=== PATIENT | female | born 1930 | race Caucasian/White ===

== ENCOUNTER 2018-01-13 13:21 | Inpatient (IN) ==
--- NOTE | 2018-01-13 13:53 | Emergency Department Note ---
Weakness HPI - General Chief complaint: Weakness Stated complaint: SOB Time Seen by Provider: 01/13/18 13:36 Source: EMS Mode of arrival: EMS Limitations: no limitations - History of Present Illness HPI Narrative: Patient brought in by survey rodman because of increased weakness. Patient herself has dementia states that she has gotten along with her however her daughter arrived and states that patient had a fall yesterday with no major injuries there was no head injury involved. Was trying to get out of bed and had fallen. Her main complaint today is that she is having increased weakness is unable to get out of the bed., According to her daughter.Temperature is 99.1 the pulse is 81 respirations are 18 blood pressure 160/63 pulse ox is reading at 90% initially but when rechecked again without any oxygen is running at 99-100% rates the pain is a 0/10 - Related Data Previous Rx's Medication Instructions Recorded Azithromycin [Zithromax] 250 mg PO UD #6 tablet 08/01/15 Cefuroxime [Ceftin] 500 mg PO Q12 #20 tablet 08/01/15 Allergies Allergy/AdvReac Type Severity Reaction Status Date / Time morphine [MORPHINE] AdvReac Mild Nausea/Vomi Verified 01/13/18 13:38 ting Review of Systems All systems ED: reviewed and negative except as stated. Constitutional: Denies: fever, chills Neurological: Reports: weakness Psychiatric: Denies: anxiety, depression Endocrine: Denies: fatigue Hematological/Lymphatic: Denies: easy bleeding Past Medical History - Past Medical History [facility] Narrative: All Active Problems (This Medical Record has been edited. Action required.) Pneumonia (Acute) Medical history: Reports: dementia - Social History smoking status: Former smoker Alcohol use: Reports: None Drug use: Reports: none Physical Exam Limitations: no limitations General appearance: alert Head: atraumatic, normocephalic Eye: Present: normal appearance, PERRL ENT: normal exam, normal oropharynx Neck: Present: normal inspection, full ROM, trachea midline Chest: Present: normal inspection, symmetric chest wall rise Respiratory: Present: normal lung sounds bilaterally. Absent: respiratory distress Cardiovascular: Present: regular rate, normal rhythm. Absent: bradycardia, tachycardia Abdominal: Present: soft, rigidity, normal bowel sounds. Absent: distention, tenderness, guarding, rebound Extremities: Present: normal inspection, full ROM. Absent: tenderness Hip/Pelvis: Present: normal inspection Upper leg: Present: normal inspection Knee: Present: normal inspection, tenderness. Absent: swelling, abrasion, laceration, ecchymosis Back: Present: normal inspection, full ROM. Absent: tenderness Neurological: Present: alert, oriented X3, CN II-XII intact Psychiatric: Present: normal affect, normal mood. Absent: depressed, agitated Skin: Present: warm, dry, intact, normal color Course Vital Signs Temperature 99.1 F H 01/13/18 13:22 Pulse Rate 81 01/13/18 13:22 Respiratory Rate 18 01/13/18 13:22 Blood Pressure 160/63 01/13/18 13:22 Pulse Oximetry (%) 90 01/13/18 13:22 Temperature 99.1 F H 01/13/18 13:22 Pulse Rate 91 H 01/13/18 17:31 Respiratory Rate 25 H 01/13/18 16:16 Blood Pressure 144/115 01/13/18 17:31 Pulse Oximetry (%) 100 01/13/18 17:31 Weakness - MDM Narrative Medical decision making narrative: WBC is elevated at 13,400 hemoglobin 12.9 hematocrit 39.274 segs 1 band and 17 lymphocytes lactic acid is 1.3 can panel normal with a glucose of 87 his sodium was 140 potassium 4.3 the BUN is 17 and creatinine 0.8 urine test shows positive leukocytes 84 WBCs and 0 RBCs culture and sensitivity is pending. Cultures have been drawn patient given IV fluids started on Levaquin. The nursing staff states that patient was unable to get off the bathroom toilet when taken to the bathroom in the ED. Patient was brought in for increased weakness unable to get out of bed - Lab Data Result diagrams: 01/13/18 14:00 01/13/18 14:00 Lab Results 01/13/18 01/13/18 01/13/18 Range/Units 14:00 14:00 14:02 WBC 13.4 H (4.5-11.0) K/mcL RBC 4.08 (4.00-5.20) M/mcL Hgb 12.9 (12.0-15.0) g/dL Hct 39.2 (36.0-48.0) % MCV 96.0 (80.0-100.0) fL MCH 31.6 (26.0-34.0) pg MCHC 32.9 (31.0-36.0) g/dL RDW 12.9 (11.5-14.5) % Plt Count 252 (140-440) K/mcL MPV 9.1 (7.4-10.4) fL Total Counted 150 Seg Neutrophils % 74 (38-78) % Band Neutrophils % 1 (0-10) % Lymphocytes % 17 (15-49) % Monocytes % (Manual) 6 (1-12) % Eosinophils % (Manual) 2 (0-7) % Basophils % (Manual) 1 (0-2) % Platelet Estimate Normal (NORMAL) RBC Morphology Normal (NORMAL) VBG Lactic Acid 1.3 (0.5-2.0) mmol/L Sodium 140 (133-145) mmol/L Potassium 4.3 (3.3-5.1) mmol/L Chloride 97 (96-108) mmol/L Carbon Dioxide 29 (22-30) mmol/L Anion Gap 14.0 (8-16) BUN 17 (8-23) mg/dl Creatinine 0.8 (0.6-1.1) mg/dl GFR Calculation 65 Glucose 87 (70-105) mg/dL Calcium 9.2 (8.6-10.4) mg/dl Total Bilirubin 0.8 (0.0-1.0) mg/dL AST 25 (0-37) U/l ALT 8 (0-40) U/l Alkaline Phosphatase 72 (39-117) U/L Total Protein 7.0 (5.9-8.4) gm/dL Albumin 3.6 (3.2-5.2) gm/dL Globulin 3.4 (2.2-3.7) gm/dL Albumin/Globulin Ratio 1.1 (1.0-2.3) Urine Color Urine Appearance Urine pH (5.0-9.0) Ur Specific [place] (1.000-1.035) Urine Protein (NEG) mg/dL Urine Glucose (UA) (NEG) mg/dL Urine Ketones (NEG) mg/dL Urine Occult Blood (<0.03) mg/dL Urine Nitrate (NEG) Urine Bilirubin (NEG) mg/dL Urine Ictotest (NEG) Urine Urobilinogen (NEG) mg/dL Ur Leukocyte Esterase (NEG) /uL Urine RBC (0-1) /hpf Urine WBC (0-4) /hpf Ur Squamous Epith Cells (0-4) /hpf Urine Bacteria (0) /hpf Urine Mucus (0) /hpf Ur Culture Indicated? 01/13/18 Range/Units 16:02 WBC (4.5-11.0) K/mcL RBC (4.00-5.20) M/mcL Hgb (12.0-15.0) g/dL Hct (36.0-48.0) % MCV (80.0-100.0) fL MCH (26.0-34.0) pg MCHC (31.0-36.0) g/dL RDW (11.5-14.5) % Plt Count (140-440) K/mcL MPV (7.4-10.4) fL Total Counted Seg Neutrophils % (38-78) % Band Neutrophils % (0-10) % Lymphocytes % (15-49) % Monocytes % (Manual) (1-12) % Eosinophils % (Manual) (0-7) % Basophils % (Manual) (0-2) % Platelet Estimate (NORMAL) RBC Morphology (NORMAL) VBG Lactic Acid (0.5-2.0) mmol/L Sodium (133-145) mmol/L Potassium (3.3-5.1) mmol/L Chloride (96-108) mmol/L Carbon Dioxide (22-30) mmol/L Anion Gap (8-16) BUN (8-23) mg/dl Creatinine (0.6-1.1) mg/dl GFR Calculation Glucose (70-105) mg/dL Calcium (8.6-10.4) mg/dl Total Bilirubin (0.0-1.0) mg/dL AST (0-37) U/l ALT (0-40) U/l Alkaline Phosphatase (39-117) U/L Total Protein (5.9-8.4) gm/dL Albumin (3.2-5.2) gm/dL Globulin (2.2-3.7) gm/dL Albumin/Globulin Ratio (1.0-2.3) Urine Color Yellow Urine Appearance Hazy Urine pH 5.0 (5.0-9.0) Ur Specific [place] 1.030 (1.000-1.035) Urine Protein 100 A (NEG) mg/dL Urine Glucose (UA) Negative (NEG) mg/dL Urine Ketones 20 A (NEG) mg/dL Urine Occult Blood Neg (<0.03) mg/dL Urine Nitrate Neg (NEG) Urine Bilirubin Neg (NEG) mg/dL Urine Ictotest Neg (NEG) Urine Urobilinogen 4.0 A (NEG) mg/dL Ur Leukocyte Esterase 75 A (NEG) /uL Urine RBC 0 (0-1) /hpf Urine WBC 84 H (0-4) /hpf Ur Squamous Epith Cells 3 (0-4) /hpf Urine Bacteria 0 (0) /hpf Urine Mucus Many A (0) /hpf Ur Culture Indicated? Yes Disposition Pt seen by [employer]/PA only: No Clinical Impression: Complicated UTI (urinary tract infection) Disposition: Xfer As Outpt/Obs ([facility]) Condition: Fair
--- NOTE | 2018-01-13 14:33 | Cat Scan Report ---
CLINICAL INFORMATION: Fall. Head injury. COMPARISON: None. TECHNIQUE: Axial noncontrast-enhanced images through the brain. FINDINGS: No acute intracranial hemorrhage. No subdural hematoma. No subarachnoid hemorrhage. No intra-axial hemorrhage. No focal attenuation abnormality or localized mass effect. No midline shift. There is cerebral atrophy. There is ventricular enlargement with prominent superficial subarachnoid spaces. Brainstem and cerebellum are negative. No calvarial fracture. There is mucosal thickening within ethmoid sinuses bilaterally. There is extensive mucosal thickening within sphenoid air cells and mild frontal sinus disease. Findings are consistent with inflammatory disease. IMPRESSION: 1. Cerebral atrophy. 2. No acute posttraumatic abnormality. No intracranial hemorrhage. No calvarial fracture. 3. Inflammatory disease of the paranasal sinuses The exam was performed using radiation dose optimization techniques including, but not limited to, automated exposure control, adjustment of the mA and/or kV according to patient size and use of iterative reconstruction technique. Interpreted and Authenticated by: Maury Goins 01/13/18
[2018-01-13 14:35] LABS: Mean Corpuscular HGB Conc 32.9 g/dL (31.0-36.0); Mean Corpuscular Hemoglobin 31.6 pg (26.0-34.0); Platelet Count 252 K/mcL (140-440); RBC 4.08 M/mcL (4.00-5.20); Red Cell Distribution Width 12.9 % (11.5-14.5)
--- NOTE | 2018-01-13 14:37 | XRay Report ---
INDICATION: COPD. Dyspnea. Weakness. TECHNIQUE: AP chest x-ray, portable upright COMPARISON: Previous examinations dated 08/01/2015, 04/22/2014, 02/17/2014 FINDINGS: Bilateral hyperexpansion. Findings are consistent with COPD. No acute or focal pulmonary parenchymal infiltrate. No evidence for congestive heart failure. Heart size is at the upper limits of normal. No pulmonary edema or pulmonary congestion. No pleural fluid. No acute abnormality or significant interval change IMPRESSION: 1. Changes consistent with COPD 2. No acute abnormality. Interpreted and Authenticated by: Maury Goins 01/13/18
[2018-01-13 14:53] LABS: ALT/SGPT 8 U/l (0-40); Albumin 3.6 gm/dL (3.2-5.2); Albumin/Globulin Ratio 1.1 (1.0-2.3); Alkaline Phosphatase 72 U/L (39-117); Blood Urea Nitrogen 17 mg/dl (8-23)
--- NOTE | 2018-01-13 14:54 | XRay Report ---
CLINICAL INFORMATION: Knee injury and knee pain TECHNIQUE: AP, oblique, crosstable lateral lateral left knee COMPARISON: None. FINDINGS: Findings consistent with osteopenia or osteoporosis. No acute left knee fracture. Distal femur and proximal tibia are negative. Degenerative joint disease in the patellofemoral joint with joint space narrowing. Small suprapatellar joint effusion. This is a nonspecific finding. No lipohemarthrosis. IMPRESSION: 1. No left knee fracture 2. Small joint effusion 3. Degenerative disease in the patellofemoral joint 4. Findings consistent with osteopenia or osteoporosis Interpreted and Authenticated by: Maury Goins 01/13/18
--- NOTE | 2018-01-13 14:55 | XRay Report ---
CLINICAL INFORMATION: Fall. Knee pain. TECHNIQUE: AP, oblique, crosstable lateral right knee COMPARISON: None. FINDINGS: Degenerative joint disease with narrowing of the patellofemoral joint. There is a small suprapatellar joint effusion. No lipohemarthrosis. No acute fracture. Distal femur and proximal tibia are negative. There is demineralization consistent with osteopenia and osteoporosis. There is moderate chondrocalcinosis. IMPRESSION: 1. Degenerative joint disease with narrowing of the patellofemoral joint 2. Small joint effusion 3. Demineralization 4. No right knee fracture Interpreted and Authenticated by: Maury Goins 01/13/18
[2018-01-13 15:31] LABS: Band Neutrophils % 1 % (0-10); Basophils % (Manual) 1 % (0-2); Eosinophils % (Manual) 2 % (0-7); Lymphocytes % 17 % (15-49); Monocytes % (Manual) 6 % (1-12); Platelet Estimate NORMAL (NORMAL); RBC Morphology NORMAL (NORMAL); Segmented Neutrophils % 74 % (38-78)
[2018-01-13] MEDS ORDERED: 0.9 % SODIUM CHLORIDE 1,000 ML IV ONE (16:00)
[2018-01-13 16:30] LABS: Appearance,Urine HAZY; Bacteria,Urine 0 /hpf (0); Bilirubin,Urine NEG (NEG); Color,Urine YELLOW; Glucose,Urine (UA) NEGATIVE (NEG); Ictotest,Urine NEG (NEG); Leukocyte Esterase,Urine 75 /uL (NEG); Mucus,Urine MANY /hpf (0); Protein,Urine 100 mg/dL (NEG); Urine Blood NEG mg/dL (<0.03); Urine RBC 0 /hpf (0-1); Urine Squamous Epithelial Cell 3 /hpf (0-4); Urine WBC 84 /hpf (0-4)
[2018-01-13] MEDS ORDERED: LEVOFLOXACIN 500 MG/100 ML BAG IV ONE (16:44)
--- NOTE | 2018-01-13 17:45 | Internal Med History&Physical ---
Medical - H&P: [facility] Patient information: Note initiated : 01/13/18 at 5:42 pm Service Date, if different from initiated Date: [] Patient: Destiny Garcia a 87 y/o F admitted on for Shortness of breath. Chief Complaint: [] History of present illness: Ms. Garcia is a 87 year old F who lives with her daughter and has a history of dementia. Yesterday the patient fell in the craig landed on her knees had a lot of pain. The daughter's roommate was able to help patient in bed. The next morning patient had a lot of pain in her knees difficulty ambulating because of the pain and also generalized weakness. She was brought into the ER. Where she was evaluated and had imaging done of both knees as well as chest and head she has no acute fractures she does have degenerative joint disease in the knees. She has COPD changes along's but again no acute pathology on imaging. During workup she was have found to have a urinalysis that was consistent with a UTI. In questioning the patient per the daughter she has urine that is been malodorous lately most of the history is obtained from the staff and the daughter as patient is a poor historian. New the daughter with mom knew what medications they are on and what therefore they just know that she takes a couple medications a day. In the ER she is also found to have leukocytosis and given the UA result patient was started on Rocephin. Lactate was within normal limits. Review of Systems: Positive for generalized weakness knee pain from fall. Denies headache/fever/ chills/nausea/vomiting/chest or abdominal pain/cough/dyspnea/diarrhea. Remaining 10 point review of systems reviewed and negative Medical - H&P: PMH Medical history: Medical History (This Medical Record has been edited. Action required.) Thyroid suspect hypothyroidism but the patient family could not give me specifics or the medication she is on Dementia Likely COPD based on smoking history and imaging Surgical history: Next T&A and bilateral shoulders Family history: Both mother and father had heart disease Social history Patient quit smoking 10-15 years ago She drinks several alcoholic drinks, liquor, about 6 times a week; the patient and daughter state that she is gone days to week without drinking and has had no withdrawals She does not use a cane or walker to get around She lives with her daughter Medical - H&P: Meds Home Medications Medication Instructions Recorded Confirmed Type Azithromycin [Zithromax] 250 mg PO UD #6 tablet 08/01/15 Rx Cefuroxime [Ceftin] 500 mg PO Q12 #20 tablet 08/01/15 Rx Allergies Allergy/AdvReac Type Severity Reaction Status Date / Time morphine [MORPHINE] AdvReac Mild Nausea/Vomi Verified 01/13/18 13:38 ting Medical - H&P: Exam - Constitutional Vitals: Temp Pulse Resp BP Pulse Ox 99.1 F H 91 H 25 H 144/115 100 01/13/18 13:22 01/13/18 17:31 01/13/18 16:16 01/13/18 17:31 01/13/18 17:31 Exam: General: Alert, Awake, No acute Distress HEENT: EOMI, normocephalic atraumatic, pupils equal round react light, dry mucous membranes CV: RRR, No murmurs, normal s1/s2 Pulm: Prolonged expiratory phase, occasional expiratory wheeze, no rales or rhonchi Abd: soft, nontender, +BS x4 Ext: no clubbing/cyanosis/edema Neuro: Alert, no focal deficits but significant generalized weakness, moves all extremities Skin: warm/dry Medical - H&P: Reslt - Labs CBC & Chem 7: 01/13/18 14:00 01/13/18 14:00 Labs: Short CBC 01/13/18 Range/Units 14:00 WBC 13.4 H (4.5-11.0) K/mcL Hgb 12.9 (12.0-15.0) g/dL Hct 39.2 (36.0-48.0) % Plt Count 252 (140-440) K/mcL BMP 01/13/18 14:00 Sodium 140 Potassium 4.3 Chloride 97 Carbon Dioxide 29 BUN 17 Creatinine 0.8 Glucose 87 Calcium 9.2 Liver Function 01/13/18 Range/Units 14:00 Total Bilirubin 0.8 (0.0-1.0) mg/dL AST 25 (0-37) U/l ALT 8 (0-40) U/l Alkaline Phosphatase 72 (39-117) U/L Albumin 3.6 (3.2-5.2) gm/dL Urine 01/13/18 Range/Units 16:02 Urine Color Yellow Urine Appearance Hazy Urine pH 5.0 (5.0-9.0) Ur Specific [place] 1.030 (1.000-1.035) Urine Protein 100 A (NEG) mg/dL Urine Glucose (UA) Negative (NEG) mg/dL - Impressions Imaging were reviewed shows no acute pathology CT brain shows a treatable atrophy chest x-ray with COPD changes knees with also arthritis but again no acute pathology Medical - H&P: A/P - Narrative A/P Narrative: A: *UTI: *Sepsis: 2/2 above *Generalized weakness: 2/2 above *Dementia: *Thyroid disease, probably hypothyroid * P: -IV Rocephin -Blood cultures pending -IV fluid hydration -PT OT -Med clarification -Case management for any discharge needs - -ppx: Lovenox
[2018-01-13] MEDS ORDERED: cefTRIAXone 1 GM in DEXTROSE 5% IN WATER 50 ML IV SCH (18:53)
[2018-01-13] MEDS ORDERED: MAGNESIUM HYDROXIDE 30 ML ORAL.SUSP PO PRN (18:53)
[2018-01-13] MEDS ORDERED: ONDANSETRON 4 MG/2 ML VIAL IV PRN (18:53)
[2018-01-13] MEDS ORDERED: IPRATROPIUM/ALBUTEROL 3 ML AMPUL.NEB NEB PRN (18:53)
[2018-01-13] MEDS ORDERED: 0.9 % SODIUM CHLORIDE 1,000 ML IV SCH (18:53)
[2018-01-13] MEDS: cefTRIAXone 1 GM VIAL IV SCH (19:57)
[2018-01-13] MEDS: DOCUSATE SODIUM 100 MG CAPSULE PO SCH (20:56)
[2018-01-13] MEDS: 0.9 % SODIUM CHLORIDE 10 ML SYRINGE IV SCH (20:56)
[2018-01-14] MEDS: guaiFENesin/CODEINE 10 ML UDC PO PRN ×4 (03:00→22:22)
[2018-01-14] MEDS: BENZONATATE 100 MG CAPSULE PO PRN ×3 (03:00→20:37)
[2018-01-14] MEDS: 0.9 % SODIUM CHLORIDE 10 ML SYRINGE IV SCH ×4 (03:50→22:14)
--- NOTE | 2018-01-14 05:27 | XRay Report ---
CLINICAL INFORMATION: Hip pain TECHNIQUE: Limited AP view of the right hip COMPARISON: None. FINDINGS: A single AP view of the right hip. There is motion with some imaged angulation. No detectable fracture. Visualized portions of the right hemipelvis are negative. There is degenerative joint space narrowing. IMPRESSION: 1. Very limited evaluation as above 2. No detectable fracture Interpreted and Authenticated by: Maury Goins 01/14/18
--- NOTE | 2018-01-14 06:48 | Internal Med Progress Note ---
Medical - PN: Subj Patient information: Note initiated : 01/14/18 at 6:45 am Service Date, if different from initiated Date: [] Patient: Destiny Garcia 87 y/o F admitted on 01/13/18 for Shortness of breath. Chief Complaint: [] Interval history: Ms. Garcia is a 87 year old F who lives with her daughter and has a history of dementia. Yesterday the patient fell in the craig landed on her knees had a lot of pain. The daughter's roommate was able to help patient in bed. The next morning patient had a lot of pain in her knees difficulty ambulating because of the pain and also generalized weakness. She was brought into the ER. Where she was evaluated and had imaging done of both knees as well as chest and head she has no acute fractures she does have degenerative joint disease in the knees. She has COPD changes along's but again no acute pathology on imaging. During workup she was have found to have a urinalysis that was consistent with a UTI. In questioning the patient per the daughter she has urine that is been malodorous lately most of the history is obtained from the staff and the daughter as patient is a poor historian. New the daughter with mom knew what medications they are on and what therefore they just know that she takes a couple medications a day. In the ER she is also found to have leukocytosis and given the UA result patient was started on Rocephin. Lactate was within normal limits. 01/14 Has a cough and sinus drainage, otherwise no complaints. Poor sleep until late in the night and slept. Review of Systems: denies headache/fever/chills/nausea/vomiting/chest or abdominal pain/dyspnea/ diarrhea. Otherwise see above. - Constitutional Vitals: Vital Signs Temp Pulse Resp BP Pulse Ox 98.3 F 90 24 H 121/53 90 01/14/18 03:27 01/14/18 03:27 01/14/18 03:27 01/14/18 03:27 01/14/18 03:27 Period Temp Pulse Resp BP Sys/[place] Pulse Ox Last 24 Hr 97.9 F-99.1 F 74-98 15-28 114-180/53-115 85-100 Intake and Output 01/13/18 01/14/18 01/14/18 21:59 05:59 13:59 Intake Total 1100 / 1100 240 / 240 Balance 1100 / 1100 240 / 240 Weight 52.163 kg Intake & Output: Intake & Output 01/13/18 01/14/18 01/14/18 21:59 05:59 13:59 Intake Total 1100 / 1100 240 / 240 Balance 1100 / 1100 240 / 240 Weight 52.163 kg Intake: IV 1100 / 1100 Sodium Chloride 0.9% 1,000 ml @ 1000 / 1000 Wide Open IV BOLUS ONE Rx#: [id number] Oral 240 / 240 Exam: General: Alert, Awake, No acute Distress HEENT: EOMI, neck supple CV: RRR, No murmurs, normal s1/s2 Pulm: Prolonged expiratory phase, no rhonchi Abd: soft, nontender, +BS x4 Ext: no clubbing/cyanosis/edema Neuro: Alert, no focal deficits but significant generalized weakness, moves all extremities Skin: warm/dry Medical - PN: Obj Da - Labs CBC & Chem 7: 01/14/18 04:07 01/13/18 14:00 Labs: Abnormal Lab Results 01/13/18 01/13/18 16:02 14:00 WBC 13.4 H Urine Protein 100 A Urine Ketones 20 A Urine Urobilinogen 4.0 A Ur Leukocyte Esterase 75 A Urine WBC 84 H Urine Mucus Many A Meds: Medications Acetaminophen (Tylenol) 650 mg PO Q6HP PRN PRN Reason: PAIN/FEVER > 101 Albuterol/Ipratropium (Duoneb) 3 ml NEB Q4HRT PRN PRN Reason: breathing Last Admin: 01/14/18 02:37 Dose: 3 ml Benzonatate (Tessalon) 100 mg PO Q8HP PRN PRN Reason: Cough Last Admin: 01/14/18 03:00 Dose: 100 mg Ceftriaxone Sodium (Rocephin) 1 gm IV DAILY [facility] Last Admin: 01/13/18 19:57 Dose: 1 gm Docusate Sodium (Colace) 100 mg PO BID [facility] Last Admin: 01/13/18 20:56 Dose: 100 mg Enoxaparin Sodium (Lovenox) 40 mg SQ DAILY PERI Guaifenesin/Codeine Phosphate (Robitussin Ac) 5 ml PO Q4HP PRN PRN Reason: Cough Last Admin: 01/14/18 03:00 Dose: 5 ml Magnesium Hydroxide (Milk Of Magnesia) 30 ml PO DAILYP PRN PRN Reason: Constipation Ondansetron HCl (Zofran) 4 mg IV Q6HP PRN PRN Reason: Nausea And Vomiting Pneumococcal Polyvalent Vaccine (Pneumovax 23) 0.5 ml IM .ONCE ONE Stop: 01/15/18 10:01 Sodium Chloride (Saline Flush) 10 ml IV Q8 PERI Last Admin: 01/14/18 04:42 Dose: Not Given Medical - PN: A/P - Time Spent With Patient Total time spent is greater than 50% in coordination of care (as documented) at patient's floor/unit and/or counseling patient: - Narrative A/P Narrative: A: *UTI: *Sepsis: 2/2 above -CXR no acute *Generalized weakness: 2/2 above *Dementia: *Thyroid disease, probably hypothyroid * P: -IV Rocephin -BC/UC pending -IV fluid hydration -PT/OT -Med clarification -Case management for any discharge needs - -ppx: Lovenox Medical - PN: Qual - VTE Deep Vein Thrombosis/Pulmonary Embolism Present on Admission: No
[2018-01-14 07:09] LABS: Basophils # (Auto) 0.1 K/mcL (0.0-0.3); Basophils % (Auto) 0.4 % (0.0-2.0); Eosinophils # (Auto) 0.1 K/mcL (0.0-0.7); Eosinophils % (Auto) 0.7 % (0.0-7.0); Granulocytes % (Auto) 81.8 % (38.0-78.0); Lymphocytes % (Auto) 8.3 % (15.5-49.0); Mean Cell Volume 97.2 fL (80.0-100.0); Mean Corpuscular HGB Conc 33.2 g/dL (31.0-36.0); Mean Corpuscular Hemoglobin 32.3 pg (26.0-34.0); Monocytes # (Auto) 1.1 K/mcL (0.1-0.9); Monocytes % (Auto) 8.8 % (1.0-12.0); Platelet Count 249 K/mcL (140-440); RBC 3.37 M/mcL (4.00-5.20); Red Cell Distribution Width 12.7 % (11.5-14.5)
[2018-01-14 07:37] LABS: ALT/SGPT 7 U/l (0-40); Albumin 3.3 gm/dL (3.2-5.2); Albumin/Globulin Ratio 1.2 (1.0-2.3); Alkaline Phosphatase 75 U/L (39-117); Bilirubin,Direct 0.3 mg/dL (0.0-0.3); Blood Urea Nitrogen 10 mg/dl (8-23); Gamma Glutamyl Transpeptidase 13 U/L (5-36)
[2018-01-14] MEDS: DOCUSATE SODIUM 100 MG CAPSULE PO SCH ×2 (10:06→20:37)
[2018-01-14] MEDS: ENOXAPARIN 40 MG/0.4 ML SYRINGE SQ SCH (10:06)
[2018-01-14] MEDS: ACETAMINOPHEN 325 MG TABLET PO PRN ×2 (13:34→13:41)
[2018-01-14] MEDS: cefTRIAXone 1 GM VIAL IV SCH (13:42)
[2018-01-15] MEDS: guaiFENesin/CODEINE 10 ML UDC PO PRN ×3 (03:38→20:58)
[2018-01-15] MEDS: 0.9 % SODIUM CHLORIDE 10 ML SYRINGE IV SCH ×3 (05:45→21:50)
[2018-01-15 06:52] LABS: Basophils # (Auto) 0 K/mcL (0.0-0.3); Basophils % (Auto) 0.3 % (0.0-2.0); Eosinophils # (Auto) 0.1 K/mcL (0.0-0.7); Eosinophils % (Auto) 0.9 % (0.0-7.0); Granulocytes % (Auto) 73.9 % (38.0-78.0); Lymphocytes # (Auto) 1.7 K/mcL (1.5-4.8); Lymphocytes % (Auto) 15.7 % (15.5-49.0); Mean Cell Volume 96.1 fL (80.0-100.0); Mean Corpuscular HGB Conc 33.2 g/dL (31.0-36.0); Mean Corpuscular Hemoglobin 31.9 pg (26.0-34.0); Monocytes % (Auto) 9.2 % (1.0-12.0); Platelet Count 270 K/mcL (140-440); RBC 3.67 M/mcL (4.00-5.20); Red Cell Distribution Width 12.9 % (11.5-14.5)
[2018-01-15 07:28] LABS: ALT/SGPT 9 U/l (0-40); Albumin 3.4 gm/dL (3.2-5.2); Albumin/Globulin Ratio 1.1 (1.0-2.3); Alkaline Phosphatase 72 U/L (39-117); Bilirubin,Direct < 0.2 mg/dL (0.0-0.3); Blood Urea Nitrogen 7 mg/dl (8-23); Gamma Glutamyl Transpeptidase 13 U/L (5-36); Uric Acid 2.4 mg/dL (2.5-8.0)
[2018-01-15] MEDS ORDERED: LORATADINE 10 MG TABLET PO PRN ×2 (07:29→08:29)
[2018-01-15] MEDS ORDERED: LORATADINE 10 MG TABLET PO ONE ×2 (07:29→08:30)
--- NOTE | 2018-01-15 08:34 | Internal Med Progress Note ---
Medical - PN: Subj Patient information: Note initiated : 01/15/18 at 6:48 am Service Date, if different from initiated Date: [] Patient: Destiny Garcia 87 y/o F admitted on 01/13/18 for Shortness of breath. Chief Complaint: [] Interval history: Ms. Garcia is a 87 year old F who lives with her daughter and has a history of dementia. Yesterday the patient fell in the craig landed on her knees had a lot of pain. The daughter's roommate was able to help patient in bed. The next morning patient had a lot of pain in her knees difficulty ambulating because of the pain and also generalized weakness. She was brought into the ER. Where she was evaluated and had imaging done of both knees as well as chest and head she has no acute fractures she does have degenerative joint disease in the knees. She has COPD changes along's but again no acute pathology on imaging. During workup she was have found to have a urinalysis that was consistent with a UTI. In questioning the patient per the daughter she has urine that is been malodorous lately most of the history is obtained from the staff and the daughter as patient is a poor historian. New the daughter with mom knew what medications they are on and what therefore they just know that she takes a couple medications a day. In the ER she is also found to have leukocytosis and given the UA result patient was started on Rocephin. Lactate was within normal limits. 01/14 Has a cough and sinus drainage, otherwise no complaints. Poor sleep until late in the night and slept. 01/15 sinus drainage with cough, no no overnight events except for being a little impulsive. Review of Systems: denies headache/fever/chills/nausea/vomiting/chest or abdominal pain/dyspnea/ diarrhea. Otherwise see above. - Constitutional Vitals: Vital Signs Temp Pulse Resp BP Pulse Ox 98.9 F 77 24 H 163/72 96 01/15/18 04:00 01/15/18 04:00 01/15/18 04:00 01/15/18 04:00 01/15/18 04:00 Period Temp Pulse Resp BP Sys/[place] Pulse Ox Last 24 Hr 98.2 F-99.7 F 76-85 22-24 107-165/57-78 94-98 Intake and Output 11/01/15/18 01/15/18 21:59 05:59 13:59 Intake Total 800 / 800 700 / 700 Balance 800 / 800 700 / 700 Weight 52.617 kg Intake & Output: Intake & Output 01/14/18 01/15/18 01/15/18 21:59 05:59 13:59 Intake Total 800 / 800 700 / 700 Balance 800 / 800 700 / 700 Weight 52.617 kg Intake: Oral 800 / 800 700 / 700 Other: Urine Appearance Clear Urine Color Straw Urine Odor Normal Stool Size Large Stool Color Brown Stool Consistency Formed # Voids 1 1 # Bowel Movements 1 Exam: General: Alert, Awake, No acute Distress HEENT: EOMI, neck supple CV: RRR, No murmurs, normal s1/s2 Pulm: Prolonged expiratory phase, no rhonchi Abd: soft, nontender, +BS x4 Ext: no clubbing/cyanosis/edema Neuro: Alert, no focal deficits but significant generalized weakness, moves all extremities Skin: warm/dry Medical - PN: Obj Da - Labs CBC & Chem 7: 01/15/18 04:07 01/14/18 04:07 Labs: Abnormal Lab Results 01/14/18 01/14/18 01/13/18 04:07 04:07 16:02 WBC 12.6 H RBC 3.37 L Hgb 10.9 L Hct 32.8 L Gran % 81.8 H Lymph % (Auto) 8.3 L Gran # 10.3 H Lymph # (Auto) 1.0 L [place] # (Auto) 1.1 H Calcium 8.4 L Phosphorus 2.1 L Urine Protein 100 A Urine Ketones 20 A Urine Urobilinogen 4.0 A Ur Leukocyte Esterase 75 A Urine WBC 84 H Urine Mucus Many A 01/13/18 14:00 WBC 13.4 H RBC Hgb Hct Gran % Lymph % (Auto) Gran # Lymph # (Auto) [place] # (Auto) Calcium Phosphorus Urine Protein Urine Ketones Urine Urobilinogen Ur Leukocyte Esterase Urine WBC Urine Mucus Meds: Medications Acetaminophen (Tylenol) 650 mg PO Q6HP PRN PRN Reason: PAIN/FEVER > 101 Last Admin: 01/14/18 13:41 Dose: 650 mg Albuterol/Ipratropium (Duoneb) 3 ml NEB Q4HRT PRN PRN Reason: breathing Last Admin: 01/14/18 02:37 Dose: 3 ml Benzonatate (Tessalon) 100 mg PO Q8HP PRN PRN Reason: Cough Last Admin: 01/14/18 20:37 Dose: 100 mg Ceftriaxone Sodium (Rocephin) 1 gm IV DAILY [facility] Last Admin: 01/14/18 13:42 Dose: 1 gm Docusate Sodium (Colace) 100 mg PO BID [facility] Last Admin: 01/14/18 20:37 Dose: 100 mg Enoxaparin Sodium (Lovenox) 40 mg SQ DAILY [facility] Last Admin: 01/14/18 10:06 Dose: 40 mg Guaifenesin/Codeine Phosphate (Robitussin Ac) 5 ml PO Q4HP PRN PRN Reason: Cough Last Admin: 01/15/18 03:38 Dose: 5 ml Magnesium Hydroxide (Milk Of Magnesia) 30 ml PO DAILYP PRN PRN Reason: Constipation Ondansetron HCl (Zofran) 4 mg IV Q6HP PRN PRN Reason: Nausea And Vomiting Pneumococcal Polyvalent Vaccine (Pneumovax 23) 0.5 ml IM .ONCE ONE Stop: 01/15/18 10:01 Sodium Chloride (Saline Flush) 10 ml IV Q8 [facility] Last Admin: 01/15/18 05:45 Dose: 10 ml Medical - PN: A/P - Time Spent With Patient Total time spent is greater than 50% in coordination of care (as documented) at patient's floor/unit and/or counseling patient: - Narrative A/P Narrative: A: *UTI: *Sepsis: 2/2 above, resolving -CXR no acute -leukocytosis resolved, BC neg *Generalized weakness: 2/2 above *Dementia: *?Thyroid disease, probably hypothyroid: verifying meds * P: -IV Rocephin -UC pending - -PT/OT -Med clarification -prn claritin -Case management for any discharge needs - -ppx: Lovenox d/c planning Medical - PN: Qual - VTE Deep Vein Thrombosis/Pulmonary Embolism Present on Admission: No
[2018-01-15] MEDS: cefTRIAXone 1 GM VIAL IV SCH (09:00)
[2018-01-15] MEDS: BENZONATATE 100 MG CAPSULE PO PRN (09:00)
[2018-01-15] MEDS: DOCUSATE SODIUM 100 MG CAPSULE PO SCH ×2 (09:01→20:58)
[2018-01-15] MEDS: ENOXAPARIN 40 MG/0.4 ML SYRINGE SQ SCH (09:01)
[2018-01-15] MEDS ORDERED: PNEUMOCOCCAL 23-VAL P-SAC VAC 0.5 ML VIAL IM ONE (10:00)
[2018-01-16] MEDS: guaiFENesin/CODEINE 10 ML UDC PO PRN (01:10)
[2018-01-16] MEDS: 0.9 % SODIUM CHLORIDE 10 ML SYRINGE IV SCH (06:01)
[2018-01-16 06:50] LABS: Basophils # (Auto) 0.1 K/mcL (0.0-0.3); Basophils % (Auto) 0.5 % (0.0-2.0); Eosinophils # (Auto) 0.2 K/mcL (0.0-0.7); Eosinophils % (Auto) 1.3 % (0.0-7.0); Granulocytes % (Auto) 78.4 % (38.0-78.0); Lymphocytes # (Auto) 1.5 K/mcL (1.5-4.8); Lymphocytes % (Auto) 13.1 % (15.5-49.0); Mean Cell Volume 95.3 fL (80.0-100.0); Mean Corpuscular HGB Conc 34.1 g/dL (31.0-36.0); Mean Corpuscular Hemoglobin 32.5 pg (26.0-34.0); Monocytes # (Auto) 0.8 K/mcL (0.1-0.9); Monocytes % (Auto) 6.7 % (1.0-12.0); Platelet Count 283 K/mcL (140-440); RBC 3.57 M/mcL (4.00-5.20); Red Cell Distribution Width 12.6 % (11.5-14.5)
[2018-01-16 07:13] LABS: ALT/SGPT 10 U/l (0-40); Albumin 3.2 gm/dL (3.2-5.2); Albumin/Globulin Ratio 1.1 (1.0-2.3); Alkaline Phosphatase 65 U/L (39-117); Bilirubin,Direct < 0.2 mg/dL (0.0-0.3); Blood Urea Nitrogen 5 mg/dl (8-23); Gamma Glutamyl Transpeptidase 15 U/L (5-36); Uric Acid 2.1 mg/dL (2.5-8.0)
[2018-01-16] MEDS: DOCUSATE SODIUM 100 MG CAPSULE PO SCH (08:26)
[2018-01-16] MEDS: cefTRIAXone 1 GM VIAL IV SCH (08:27)
[2018-01-16] MEDS: ENOXAPARIN 40 MG/0.4 ML SYRINGE SQ SCH (08:27)
--- NOTE | 2018-01-16 10:23 | Discharge Summary ---
Medical - DS: Prov Patient information: Note initiated : 01/16/18 at 10:14 am Service Date, if different from initiated Date: [] Patient: Destiny Garcia 87 y/o F admitted on 01/13/18 for Shortness of breath. Chief Complaint: [] Date of admission: 01/13/2018 Discharge date: 01/16/18 Consults: 01/13/18 17:17 Consult to Physician [CONS] Stat Comment: Consulting Provider: Alexander Lopez Reason For Exam: Physician to Consult Discharging clinician: Rene Samuel Medical - DS: Meds - Discharge Medications Prescriptions: Cefdinir 300 mg PO BID #10 cap Loratadine [Claritin] 10 mg PO DAILYP PRN #10 tab PRN Reason: Cough Active and Home Medications: Home Medications Enalapril Maleate [Vasotec] 20 mg PO DAILY 01/13/18 [History Confirmed 01/13/18 Last Taken Unknown] Methocarbamol [Robaxin] 250 mg PO QIDP 01/13/18 [History Confirmed 01/13/18 Last Taken Unknown] rOPINIRole HCL [Ropinirole HCl] 5 mg PO HS 01/13/18 [History Confirmed 01/13/18 Last Taken Unknown] traMADol [Ultram] 50 - 100 mg PO TID 01/13/18 [History Confirmed 01/13/18 Last Taken Unknown] traZODone HCL [Desyrel] 150 mg PO HS 01/13/18 [History Confirmed 01/13/18 Last Taken Unknown] Medical - DS: Hosp Hospital course: Ms. Garcia is a 87 year old F who lives with her daughter and has a history of dementia. The day before admission the patient fell in the craig landed on her knees had a lot of pain. The daughter's roommate was able to help patient in bed. The next morning patient had a lot of pain in her knees difficulty ambulating because of the pain and also generalized weakness. She was brought into the ER. Where she was evaluated and had imaging done of both knees, hip as well as chest and head she has no acute fractures she does have degenerative joint disease in the knees. She has COPD changes along's but again no acute pathology on imaging. During workup she was have found to have a urinalysis that was consistent with a UTI. In questioning the patient per the daughter she has urine that is been malodorous lately most of the history is obtained from the staff and the daughter as patient is a poor historian. New the daughter with mom knew what medications they are on and what therefore they just know that she takes a couple medications a day. In the ER she is also found to have leukocytosis and given the UA result patient was started on Rocephin. Lactate was within normal limits. 01/14 Has a cough and sinus drainage, otherwise no complaints. Poor sleep until late in the night and slept. 01/15 sinus drainage with cough, no no overnight events except for being a little impulsive. 01/16 Patient seen examined, cough better with claritin, but other complaints, pt notes she is very bored in the hospital, is seen walking outside the hospital room at times. She is able to tolerate po diet well, ambulating by self. She will be discharged home with po antibiotics adn with her daughter. Discharge diagnosis: UTI - Time Spent with Patient Total time spent providing and/or coordinating discharge services: Less than 30 minutes Medical - DS: Exam - Constitutional Vitals: Vital Signs Temp Pulse Resp BP BP Pulse Ox 01/16/18 07:37 98.6 F 20 166/77 94 01/16/18 04:00 97.9 F 66 18 169/59 97 01/16/18 00:00 98.1 F 80 20 177/81 96 01/15/18 20:00 97.4 F 86 18 163/68 96 01/15/18 15:57 98.6 F 85 22 147/70 94 01/15/18 12:00 98.6 F 83 22 137/68 94 Intake and Output 01/15/18 01/16/18 01/16/18 21:59 05:59 13:59 Intake Total 360 / 360 200 / 200 Output Total 3 / 3 Balance -3 / -3 360 / 360 200 / 200 Intake: Oral 360 / 360 200 / 200 Output: Void Amount 3 / 3 Other: Meal Breakfast Percent of Meal Consumed 100% Urine Appearance Clear Urine Color Straw Urine Odor Normal Stool Size Small Stool Color Brown Stool Consistency Dry and Hard [place] # Voids 1 1 1 # Bowel Movements 1 Weight 119 lb Additional comments: Constitutional; Afebrile, cooperative, alert, not in distress. Respiratory system: Air Entry equal on both sides, No crackles or wheezing, no rhonchi. CVS- Rate rhythm regular, S1,S2 heard, no gallop, no rub. Abdomen- Soft nontender abdomen, no organomegaly, no tenderness, no guarding or rigidity, [employer]- AOOx1, moving all extremities, no gross focal deficit noted. Medical - DS: Data Labs on day of discharge: Labs from last 24 hours 01/16/18 01/16/18 04:25 04:25 WBC 11.4 H RBC 3.57 L Hgb 11.6 L Hct 34.0 L MCV 95.3 MCH 32.5 MCHC 34.1 RDW 12.6 Plt Count 283 MPV 9.3 Gran % 78.4 H Lymph % (Auto) 13.1 L [place] % (Auto) 6.7 Eos % (Auto) 1.3 Baso % (Auto) 0.5 Gran # 8.9 H Lymph # (Auto) 1.5 [place] # (Auto) 0.8 Eos # (Auto) 0.2 Baso # (Auto) 0.1 Sodium 141 Potassium 3.8 Chloride 101 Carbon Dioxide 27 Anion Gap 13.0 BUN 5 L Creatinine 0.7 GFR Calculation 77 Glucose 81 Uric Acid 2.1 L Calcium 8.8 Phosphorus 3.0 Magnesium 2.0 Total Bilirubin 0.4 Direct Bilirubin < 0.2 GGT 15 AST 30 ALT 10 Alkaline Phosphatase 65 Lactate Dehydrogenase 274 H Total Protein 6.2 Albumin 3.2 Globulin 3.0 Albumin/Globulin Ratio 1.1 Triglycerides 72 Preliminary micro results at discharge 01/13/18 15:10 Blood Culture - Preliminary Blood 01/13/18 15:22 Blood Culture - Preliminary Blood Medical - DS: A/P - Patient/Caregiver Discharge Instructions Activity: increase activity as tolerated Diet: Regular Diet Additional Instructions: Take antibiotics cefdinir for another 5 days 1 capsule twice daily Take claritin 10mg daily as needed for cough. Go to the ER if fever, chills chest pain, shortness of breath or any other acute concern. Follow up with PCP in 1 week - Follow up Plan Disposition: Home, Self-Care Prognosis: Fair Rehab Potential: Fair I certify that the patient requires SNF services: No Overall status at discharge: patient is progressing back to baseline Medical - DS: Qual - VTE Deep Vein Thrombosis/Pulmonary Embolism Present on Admission: No
== END 2018-01-16 13:10 | disposition home or self-care (01) | DRG 690 ==
LOC: ED 13:21 → MERGE 13:21 → MEDSUR 18:41
PROVIDERS: ADMIT Internal Medicine; ATTEND Internal Medicine
CPT/HCPCS: 73501; 90686; 97162; 97167; 99223; 99231; 90732; J0696; J1650; J1956; J7030; J7620; J7620-GY